=== PATIENT | male | born 1970 | race Caucasian/White ===

== ENCOUNTER 2024-03-03 16:07 | Emergency (ER) | payer MEDICAID ==
[~2024-03-03] VITALS: Ht 188 cm; Wt 72.7 kg
[2024-03-03 17:17] LABS: BASOPHILS # (AUTO) 0.2 X10'3 (0-0.2); BASOPHILS % (AUTO) 1.2 % (0-1); EOSINOPHILS # (AUTO) 0.1 X10'3 (0-0.9); EOSINOPHILS % (AUTO) 0.6 % (0-6); HEMATOCRIT 24.7 % (42.0-52.0); HEMOGLOBIN 8.3 g/dl (14.0-17.9); LYMPHOCYTES # (AUTO) 1.5 X10'3 (1.1-4.8); LYMPHOCYTES % (AUTO) 11.3 % (21-51); MEAN CORPUSCULAR HEMOGLOBIN 29.7 PG (27.0-31.0); MEAN CORPUSCULAR HGB CONC 33.6 g/dL (33.0-36.5); MEAN CORPUSCULAR VOLUME 88.4 FL (78-98); MEAN PLATELET VOLUME 8.1 FL (7.4-10.4); MONOCYTES # (AUTO) 1.4 X10'3 (0-0.9); MONOCYTES % (AUTO) 10.3 % (2-12); NEUTROPHILS # (AUTO) 10.4 X10'3 (1.8-7.7); NEUTROPHILS % (AUTO) 76.6 % (42-75); PLATELET COUNT 395 X10'3 (140-440); RED CELL DISTRIBUTION WIDTH 15.3 % (11.5-14.5); WHITE BLOOD COUNT 13.6 X10'3 (4.5-11.0)
[2024-03-03 17:31] LABS: ALBUMIN 1.8 G/DL (3.4-5.0); ANION GAP 7 (8-16); BLOOD UREA NITROGEN 11 MG/DL (7-18); BUN/CREATININE RATIO 10.6 (10.0-20.0); CALCIUM 7.3 MG/DL (8.5-10.1); CHLORIDE 98 MMOL/L (99-107); CREATININE 1.04 MG/DL (0.60-1.10); GLUCOSE 97 MG/DL (70-104); POTASSIUM 3.3 MMOL/L (3.5-5.1); PRO BRAIN NATRIURETIC PEPTIDE 6085 PG/ML (0-125); SODIUM 134 MMOL/L (135-145); TOTAL CARBON DIOXIDE 28.8 MMOL/L (24-32); eCRCL 84 ML/MIN; eGFR 74 ML/MIN
[2024-03-03] MEDS ORDERED: iohexol 350MG/ML 100ml bottle IV ONE (19:08)
[2024-03-03] MEDS: normal saline 1000ml 1,000 ML IV ONE ×2 (19:57→23:30)
[2024-03-03 20:21] LABS: ALANINE AMINOTRANSFERASE 21 U/L (12-78); ALBUMIN 1.6 G/DL (3.4-5.0); ALBUMIN/GLOBULIN RATIO 0.4 (1.1-1.5); ALKALINE PHOSPHATASE 210 IU/L (46-116); ANION GAP 7 (8-16); ASPARTATE AMINO TRANSFERASE 15 U/L (10-37); BILIRUBIN,TOTAL 0.2 MG/DL (0.1-1.0); BLOOD UREA NITROGEN 11 MG/DL (7-18); BUN/CREATININE RATIO 10.2 (10.0-20.0); CALCIUM 7.4 MG/DL (8.5-10.1); CHLORIDE 98 MMOL/L (99-107); CREATININE 1.08 MG/DL (0.60-1.10); GLUCOSE 75 MG/DL (70-104); SODIUM 135 MMOL/L (135-145); TOTAL CARBON DIOXIDE 30.2 MMOL/L (24-32); TOTAL PROTEIN 5.4 G/DL (6.4-8.2); eCRCL 80 ML/MIN; eGFR 71 ML/MIN
[2024-03-03 20:22] LABS: BILIRUBIN,URINE NEGATIVE (Neg); CLARITY,URINE CLEAR (Clear); COLOR,URINE YELLOW (Yellow); GLUCOSE, URINE NEGATIVE (Neg); KETONES,URINE NEGATIVE (Neg); LEUKOCYTE ESTERASE ,URINE NEGATIVE (Neg); NITRITES, URINE NEGATIVE (Neg); OCCULT BLOOD,URINE NEGATIVE (Neg); PROTEIN,URINE TRACE mg/dl (Neg); UROBILINOGEN,URINE 0.2 E.U/dL (0.2-1.0)
[2024-03-03 20:38] LABS: UA COLLECTION TYPE FOLEY CATH
[2024-03-03 20:40] LABS: WBC,URINE 0-4 /HPF (0-4)
[2024-03-03 20:41] LABS: BACTERIA,URINE NONE SEEN /HPF (Neg); HYALINE CASTS 0-3 /LPF (NEGATIVE); MUCUS STRANDS FEW /LPF (Neg); RBC,URINE 0-2 /HPF (0-2); SQUAMOUS EPITHELIAL CELL,UR FEW /LPF (FEW)
[2024-03-03] MEDS: HYDROmorphone inj. 0.5 MG/0.5 ML DISP.SYRIN IV ONE ×2 (22:03→23:50)
[2024-03-03] MEDS: piperacillin/tazo 3.375gm/50ml 50 ML IV SCH (22:30)
[2024-03-03] MEDS: normal saline 500ml IV soln 500 ML IV SCH (23:30)
[2024-03-03] MEDS: venlafaxine 25mg tablet PO ONE (23:31)
[2024-03-03] MEDS: potassium Cl 20 mEq SR tablet PO STA (23:32)
[2024-03-04] MEDS ORDERED: piperacillin/tazo 3.375gm/50ml 50 ML IV SCH
[2024-03-04] MEDS ORDERED: EPOE10008 (00:43)
[2024-03-04] MEDS ORDERED: ALB0.5UD NEB (00:43)
[2024-03-04] MEDS ORDERED: KETO-96 RIGHTEYE (00:51)
[2024-03-04] MEDS ORDERED: LOP12.5T PO (00:51)
[2024-03-04] MEDS ORDERED: VENL25TA48 PO (00:51)
[2024-03-04] MEDS ORDERED: INSU200I (00:51)
[2024-03-04] MEDS ORDERED: LIDO700A47 TOP (00:51)
[2024-03-04] MEDS ORDERED: QUET-1 PO (00:51)
[2024-03-04] MEDS ORDERED: PANT20TA18 PO (00:51)
[2024-03-04] MEDS ORDERED: LOPE1LIQ54 PO (00:51)
[2024-03-04] MEDS ORDERED: ATR0.5NEB NEB (00:51)
[2024-03-04] MEDS ORDERED: KETO-96 LEFTEYE (00:51)
[2024-03-04] MEDS ORDERED: LINE600T11 PO (00:51)
[2024-03-04] MEDS: HYDROmorphone 1 mg/ml syringe IV ONE (12:40)
[2024-03-04 12:55] VITALS: BP 124/81; PULSE 99; RESP 19; TEMP 98.4; O2SAT 99
== END 2024-03-04 12:59 | disposition short-term general hospital (02) ==
LOC: ER 16:08
DX: A41.9 Sepsis, unspecified organism (principal); T81.43XA Infection following a procedure, organ and space surgical site, initial encounter; K65.1 Peritoneal abscess
CPT/HCPCS: 36415; 71045; 71275; 74177; 80048; 80053; 81001; 83605; 83880; 84484; 85025; 87040; 93005; 96361; 96365; 96366; 96375; 96376; 99285; J1170; J2543; J7030; J7040; Q9967; A4371; A4421

== ENCOUNTER 2024-05-09 10:59 | Outpatient (CLI) | payer MEDICAID ==
[~2024-05-09 10:59] MED LIST: ALB0.5UD NEB; ATR0.5NEB NEB; EPOE10008; INSU200I; KETO-96 LEFTEYE; KETO-96 RIGHTEYE; LIDO700A47 TOP; LINE600T11 PO; LOP12.5T PO; LOPE1LIQ54 PO; PANT20TA18 PO; QUET-1 PO; VENL25TA48 PO
== END 2024-05-09 23:59 | disposition home or self-care (01) ==
LOC: MRI 10:59
PROVIDERS: ATTEND Internal Medicine
DX: M50.323 Other cervical disc degeneration at C6-C7 level (principal); M47.812 Spondylosis without myelopathy or radiculopathy, cervical region; M48.02 Spinal stenosis, cervical region
CPT/HCPCS: 72141